=== PATIENT | male | born 2000 | race African-American/Black ===

== ENCOUNTER 2024-03-26 16:20 | Inpatient (IN) ==
[2024-03-26 17:44] LABS: ABS Lymphocytes 1.9 10^3/uL (1.0-4.8); ABS Monocytes 0.5 10^3/uL (0.0-1.1); ABS Neutrophils 4.1 10^3/uL (1.5-7.6); ABS Nucleated RBC 0.01 10^3/ul; Eosinophil % 0.3 %; Hematocrit 47.3 % (38-53); Lymphocyte % 28.8 %; Mean Corpuscular Hemoglobin 29.3 pg (27-33); Mean Corpuscular Hgb Conc 33.8 g/dL (31-36); Mean Corpuscular Volume 86.6 fL (80-97); Mean Platelet Volume 6.9 fL (7.5-11.2); Nucleated Red Blood Cells % 0.2 %/100WBC (0.0-0.8); Platelet Count 246 10^3/uL (150-450); Red Blood Count 5.46 10^6/uL (4.06-5.63); Red Cell Distribution Width 14.3 % (12-17); White Blood Count 6.5 10^3/uL (3.6-10.2)
[2024-03-26 18:05] LABS: Urine Benzodiazepine Screen None Detected (None Detect); Urine Cannabinoids Screen None Detected (None Detect); Urine Opiates Screen None Detected (None Detect)
[2024-03-26 18:34] LABS: ALT 15 U/L (7-52); AST 19 U/L (13-39); Acetaminophen < 15 mcg/mL; Albumin 4.8 g/dL (3.2-5.2); Albumin/Globulin Ratio 1.8 (1-3); Alcohol, S < 13 mg/dL (<13); Alkaline Phosphatase 92 U/L (35-149); Anion Gap 8 mmol/L (2-16); Blood Urea Nitrogen 11 mg/dL (6-24); CO2 Carbon Dioxide 26 mmol/L (22-32); Chloride 104 mmol/L (101-111); Creatinine, Serum 1.09 mg/dL (0.67-1.17); Globulin 2.7 g/dL (2-4); Glucose 102 mg/dL (70-100); Salicylate < 2.50 mg/dL (<30); Sodium 138 mmol/L (135-145); Total Bilirubin 1.3 mg/dL (0.2-1.0); Total Protein 7.5 g/dL (6.4-8.9); eGFR CKD-EPI 97.2 (>60)
[2024-03-26 18:38] LABS: TSH Ultra Thyroid Stim Horm 0.72 mcIU/mL (0.34-5.60)
[2024-03-26] MEDS ORDERED: Al Hydrox/Mg Hydrox/Simet LIQ 30 ML UDC PO PRN (20:52)
[2024-03-27] MEDS ORDERED: OLANZapine 5 mg TAB *ODT PO PRN (08:30)
[2024-03-27 08:37] LABS: HDL Cholesterol 34.4 mg/dL
[2024-03-27] MEDS: Vitamin THERAPEUTIC TAB PO SCH (09:51)
[2024-03-27] MEDS: NF:Cariprazine 3 mg CAP (NF) PO SCH (10:36)
[2024-03-27] MEDS: TOLTERODINE 2 MG PO SCH (10:36)
[2024-03-30] MEDS: TOLTERODINE 4 MG PO SCH (09:02)
[2024-04-08 09:06] VITALS: BP 100/58
== END 2024-04-08 13:41 | disposition home or self-care (01) | DRG 750 ==
LOC: ED 16:20 → EDHOLD 19:57 → BSU 20:01
PROVIDERS: ADMIT Psychiatry & Neurology Psychiatry; ATTEND Psychiatry & Neurology Psychiatry

== ENCOUNTER 2024-11-29 00:40 | Inpatient (IN) ==
[2024-11-29 01:37] LABS: ABS Lymphocytes 1.9 10^3/uL (1.0-4.8); ABS Monocytes 0.4 10^3/uL (0.0-1.1); ABS Neutrophils 3.4 10^3/uL (1.5-7.6); ABS Nucleated RBC 0.01 10^3/ul; Eosinophil % 0.7 %; Hematocrit 45.1 % (38-53); Hemoglobin 15.6 g/dL (13.2-16.3); Lymphocyte % 33.2 %; Mean Corpuscular Hemoglobin 29.8 pg (27-33); Mean Corpuscular Hgb Conc 34.6 g/dL (31-36); Mean Corpuscular Volume 86.3 fL (80-97); Mean Platelet Volume 6.8 fL (7.5-11.2); Nucleated Red Blood Cells % 0.2 %/100WBC (0.0-0.8); Platelet Count 246 10^3/uL (150-450); Red Blood Count 5.23 10^6/uL (4.06-5.63); White Blood Count 5.9 10^3/uL (3.6-10.2)
[2024-11-29 01:43] LABS: Urine Appearance Clear; Urine Bilirubin Negative (Negative); Urine Blood Negative (Negative); Urine Color Yellow; Urine Glucose Negative (Negative); Urine Ketones Negative (Negative); Urine Nitrite Negative (Negative); Urine Protein Trace (Negative); Urine Specific Gravity 1.036 (1.002-1.030); Urine Urobilinogen 1+ (Negative)
[2024-11-29 01:52] LABS: Urine Benzodiazepine Screen None Detected (None Detect); Urine Cannabinoids Screen Presumptive Positive (None Detect); Urine Opiates Screen None Detected (None Detect)
[2024-11-29 02:38] LABS: ALT 21 U/L (7-52); AST 22 U/L (13-39); Acetaminophen < 15 mcg/mL; Albumin 4.6 g/dL (3.5-5.7); Albumin/Globulin Ratio 1.4 (1-3); Alcohol, S < 13 mg/dL (<13); Alkaline Phosphatase 93 U/L (35-149); Anion Gap 9 mmol/L (2-16); Blood Urea Nitrogen 10 mg/dL (6-24); CO2 Carbon Dioxide 24 mmol/L (22-32); Calcium 9.9 mg/dL (8.6-10.3); Chloride 105 mmol/L (101-111); Creatine Kinase 227 U/L (10-223); Creatinine, Serum 0.78 mg/dL (0.67-1.17); Globulin 3.2 g/dL (2-4); Glucose 110 mg/dL (70-100); Potassium 3.9 mmol/L (3.5-5.0); Salicylate < 2.50 mg/dL (<30); Sodium 138 mmol/L (135-145); Total Bilirubin 0.7 mg/dL (0.2-1.0); Total Protein 7.8 g/dL (6.4-8.9); eGFR CKD-EPI 126.9 (>60)
[2024-11-29 02:47] LABS: Urine Bacteria Absent /HPF (Absent); Urine Red Blood Cell Absent /HPF (0-Trace); Urine Squamous Epithelial Cell Present /HPF (Absent); Urine White Blood Cell Absent /HPF (0-Trace)
[2024-11-29 02:53] LABS: TSH Ultra Thyroid Stim Horm 4.57 mcIU/mL (0.34-5.60)
[2024-11-29] MEDS: Vitamin THERAPEUTIC TAB PO SCH (10:48)
[2024-12-02 08:46] LABS: HDL Cholesterol 32.5 mg/dL
[2024-12-07] MEDS: Influenza Vaccine *TRI* 2024-25* 0.5 ML SYRINGE IM ONE (14:20)
[2024-12-07] MEDS: Al Hydrox/Mg Hydrox/Simet LIQ 30 ML UDC PO PRN (17:34)
[2024-12-18 09:54] VITALS: BP 101/63
== END 2024-12-18 11:10 | disposition home or self-care (01) | DRG 750 ==
LOC: ED 00:40 → EDHOLD 04:12 → BSU 07:48
PROVIDERS: ADMIT Psychiatry & Neurology Psychiatry; ATTEND Psychiatry & Neurology Psychiatry